=== PATIENT | male | born 1975 | race Asian ===

== ENCOUNTER → 2018-03-05 09:04 | Outpatient (CLI) | payer OTHER, SELFPAY ==
[2018-03-05 10:15] LABS: Hemoglobin A1C% w Est Avg Glu 6.4 % (4.0-6.0)
[2018-03-05 10:19] LABS: Alanine Aminotransferase 43 IU/L (21-72); Albumin 4.6 g/dL (3.5-5.0); Albumin Globulin Ratio 1.4 (1.0-2.8); Alkaline Phosphatase 62 U/L (38-126); Aspartate Aminotransferase 55 IU/L (17-59); BUN Creatinine Ratio 14.3 (6-22); Bilirubin Total 1.4 mg/dL (0.2-1.3); Blood Urea Nitrogen 10 mg/dL (9-20); Carbon Dioxide 29 mmol/L (22-32); Chloride 102 mmol/L (98-107); Cholesterol 177 mg/dL (140-199); Estimated Glomerular Filt Rate > 60.0 mL/min (>60); Globulin 3.3 g/dL (1.7-4.1); Glucose 113 mg/dL (70-100); HDL Cholesterol 55 mg/dL (40-60); HEMOLYSIS < 15 (0-50); LDL Cholesterol Calculated 100 mg/dL (<100); Potassium 4.3 mmol/L (3.4-5.1); Sodium 141 mmol/L (137-145); Total Protein 7.9 g/dL (6.3-8.2); Triglycerides 108 mg/dL (35-150)
[2018-03-05 12:09] LABS: Creatinine Urine Random 32.6 mg/dL
[2018-03-05 12:31] LABS: Microalbumi Creatinin Ratio Ur 18.4 ug/mg CR (<30); Microalbumin Urine Random < 0.6 mg/dL (0-1.6)
== END ==
PROVIDERS: PCP Family Medicine; Visit Provider Physician Assistant
DX: R73.01 Impaired fasting glucose (principal); E78.5 Hyperlipidemia, unspecified
CPT/HCPCS: 36415; 80053; 80061; 82043; 82570; 83036

== ENCOUNTER → 2018-08-15 10:46 | Outpatient (CLI) | payer OTHER, SELFPAY ==
[2018-08-15 12:16] LABS: Hemoglobin A1C% w Est Avg Glu 6.2 % (4.0-6.0)
[2018-08-15 13:11] LABS: Alanine Aminotransferase 39 IU/L (21-72); Albumin 4.8 g/dL (3.5-5.0); Albumin Globulin Ratio 1.6 (1.0-2.8); Alkaline Phosphatase 68 U/L (38-126); Aspartate Aminotransferase 27 IU/L (17-59); Bilirubin Total 0.5 mg/dL (0.2-1.3); Blood Urea Nitrogen 14 mg/dL (9-20); Calcium 9.8 mg/dL (8.4-10.2); Carbon Dioxide 29 mmol/L (22-32); Chloride 100 mmol/L (98-107); Estimated Glomerular Filt Rate > 60.0 mL/min (>60); Glucose 83 mg/dL (70-100); HEMOLYSIS < 15 (0-50); Potassium 4.8 mmol/L (3.4-5.1); Sodium 142 mmol/L (137-145); Total Protein 7.8 g/dL (6.3-8.2)
== END ==
PROVIDERS: PCP Registered Nurse; Visit Provider Registered Nurse
DX: E11.9 Type 2 diabetes mellitus without complications (principal)
CPT/HCPCS: 36415; 80053; 83036

== ENCOUNTER → 2019-08-12 15:11 | Outpatient (CLI) | payer OTHER, SELFPAY ==
[2019-08-12 15:55] LABS: Hemoglobin A1C% w Est Avg Glu 5.7 % (4.0-6.0)
[2019-08-12 16:14] LABS: BUN Creatinine Ratio 17.5 (6-22); Blood Urea Nitrogen 14 mg/dL (9-20); Calcium 10.2 mg/dL (8.4-10.2); Carbon Dioxide 31 mmol/L (22-32); Chloride 99 mmol/L (98-107); Estimated Glomerular Filt Rate > 60.0 mL/min (>60); Glucose 104 mg/dL (70-100); HEMOLYSIS < 15 (0-50); Sodium 139 mmol/L (137-145)
[2019-08-12 20:16] LABS: Creatinine Urine Random 18.2 mg/dL; Microalbumin Urine Random < 0.6 mg/dL (0-1.6)
== END ==
PROVIDERS: PCP Student in an Organized Health Care Education/Training Program; Visit Provider Student in an Organized Health Care Education/Training Program
DX: E11.9 Type 2 diabetes mellitus without complications (principal); I10 Essential (primary) hypertension
CPT/HCPCS: 36415; 80048; 82043; 82570; 83036

== ENCOUNTER → 2020-01-02 08:03 | Outpatient (CLI) | payer OTHER, SELFPAY ==
[2020-01-02 09:05] LABS: Hemoglobin A1C% w Est Avg Glu 6.1 % (4.0-6.0)
== END ==
PROVIDERS: PCP Student in an Organized Health Care Education/Training Program; Referring Provider Student in an Organized Health Care Education/Training Program; Visit Provider Student in an Organized Health Care Education/Training Program
DX: E11.9 Type 2 diabetes mellitus without complications (principal)
CPT/HCPCS: 36415; 83036

== ENCOUNTER → 2020-08-12 07:27 | Outpatient (CLI) | payer OTHER, SELFPAY ==
[2020-08-12 08:40] LABS: Hemoglobin A1C% w Est Avg Glu 6.2 % (4.0-6.0)
[2020-08-12 09:16] LABS: Microalbumin Urine Random < 0.6 mg/dL (0-1.6)
== END ==
PROVIDERS: PCP Student in an Organized Health Care Education/Training Program; Referring Provider Student in an Organized Health Care Education/Training Program; Visit Provider Student in an Organized Health Care Education/Training Program
DX: E11.9 Type 2 diabetes mellitus without complications (principal)
CPT/HCPCS: 36415; 82043; 82570; 83036

== ENCOUNTER → 2020-12-17 09:37 | Outpatient (CLI) | payer OTHER, SELFPAY ==
[2020-12-17 10:38] LABS: Blood Urea Nitrogen 12 mg/dL (9-20); Calcium 9.6 mg/dL (8.4-10.2); Carbon Dioxide 29 mmol/L (22-32); Chloride 102 mmol/L (98-107); Estimated Glomerular Filt Rate > 60.0 mL/min (>60); Glucose 108 mg/dL (70-100); HEMOLYSIS < 15 (0-50); Potassium 4.4 mmol/L (3.4-5.1); Sodium 138 mmol/L (137-145)
[2020-12-17 10:40] LABS: Hemoglobin A1C% w Est Avg Glu 6.2 % (4.0-6.0)
== END ==
PROVIDERS: PCP Student in an Organized Health Care Education/Training Program; Referring Provider Student in an Organized Health Care Education/Training Program; Visit Provider Student in an Organized Health Care Education/Training Program
DX: E11.9 Type 2 diabetes mellitus without complications (principal); I10 Essential (primary) hypertension
CPT/HCPCS: 36415; 80048; 83036

== ENCOUNTER → 2021-07-20 08:27 | Outpatient (CLI) | payer OTHER, SELFPAY ==
[2021-07-20 09:30] LABS: Hemoglobin A1C% w Est Avg Glu 6.2 % (4.0-6.0)
[2021-07-20 10:28] LABS: Creatinine Urine Random 118.4 mg/dL
[2021-07-20 10:33] LABS: Microalbumin Urine Random 0.6 mg/dL (0-1.6)
== END ==
PROVIDERS: PCP Student in an Organized Health Care Education/Training Program; Referring Provider Student in an Organized Health Care Education/Training Program; Visit Provider Student in an Organized Health Care Education/Training Program
DX: R73.03 Prediabetes (principal)
CPT/HCPCS: 36415; 82043; 82570; 83036

== ENCOUNTER → 2021-12-29 14:48 | Outpatient (CLI) | payer OTHER, SELFPAY ==
[2021-12-29 15:36] LABS: Hemoglobin A1C% w Est Avg Glu 6.5 % (4.0-6.0)
== END ==
PROVIDERS: PCP Student in an Organized Health Care Education/Training Program; Referring Provider Student in an Organized Health Care Education/Training Program; Visit Provider Student in an Organized Health Care Education/Training Program
DX: R73.03 Prediabetes (principal)
CPT/HCPCS: 36415; 83036

== ENCOUNTER → 2022-02-20 15:35 | Outpatient (CLI) | payer OTHER, SELFPAY ==
--- NOTE | 2022-02-20 | DI.MRI.S_ITS ---
PROCEDURE: MR BRAIN (IAC) WWO CON INDICATIONS: Sensorineural hearing loss, bilateral; Tinnitus TECHNIQUE: Noncontrast sagittal T1 spin echo, axial FLAIR, axial gradient echo, axial diffusion and ADC through the brain. Axial thin-slice 3D CISS, coronal TruFISP, axial T1 spin echo with fat saturation through the internal auditory canals. After the administration of contrast, thin slice axial and coronal T1 spin echo with fat saturation through the internal auditory canals, and axial T1 spin echo with fat saturation through the brain. COMPARISON: None. FINDINGS: Avidly-enhancing dumbbell-shaped in the right cerebellopontine angle expanding the internal auditory canal with extension laterally to the porous acoustic and extension medially into the cerebellopontine angle. This lesion measures approximately 2.5 x 1.5 cm maximum axial dimension and 1.4 cm craniocaudal. The mass is consistent with a vestibular schwannoma, although this is not entirely definitive. No other abnormal or unexpected intracranial enhancement. No restricted diffusion to indicate recent ischemia. The major intracranial vascular flow-related signal voids are maintained. No unexpected intracranial susceptibility. No brain parenchymal FLAIR signal abnormality. Midline structures are normal in configuration. No gross orbital abnormality. Paranasal sinuses and mastoid air cells are predominantly clear. IMPRESSION: Avidly-enhancing and dumbbell-shaped mass in the internal auditory canal extending into the cerebellopontine angle on the right, consistent with a vestibular schwannoma. Dictated by: Florencio Vicente M.D. on 02/20/2022 at 16:33 Approved by: Florencio Vicente M.D. on 02/20/2022 at 16:36
== END ==
PROVIDERS: PCP Student in an Organized Health Care Education/Training Program; Referring Provider Otolaryngology; Visit Provider Otolaryngology
DX: H90.3 Sensorineural hearing loss, bilateral (principal); H93.11 Tinnitus, right ear; H61.891 Other specified disorders of right external ear
CPT/HCPCS: 70553

== ENCOUNTER → 2022-06-18 16:30 | Outpatient (CLI) | payer OTHER, SELFPAY ==
[2022-06-18 17:50] LABS: Hemoglobin A1C% w Est Avg Glu 6.1 % (4.0-6.0)
== END ==
PROVIDERS: PCP Student in an Organized Health Care Education/Training Program; Referring Provider Student in an Organized Health Care Education/Training Program; Visit Provider Student in an Organized Health Care Education/Training Program
DX: R73.03 Prediabetes (principal)
CPT/HCPCS: 36415; 83036

== ENCOUNTER 2022-12-20 08:02 | Day surgery (SDC) | payer OTHER, SELFPAY ==
[2022-12-20] VITALS (7 sets, daily range): BP systolic 104–152; BP diastolic 71–88; PULSE 21–91; RESP 8–16; TEMP 36.1–36.4; O2SAT 97–100; BMI 24.3
[2022-12-20] MEDS: LACTATED RINGERS 1,000 ML 42 ML IV (08:19)
--- NOTE | 2022-12-20 09:40 | PM.HP.1 ---
History of Present Illness History of Present Illness Date Patient Seen: 12/20/22 Time Patient Seen: 09:41 Chief complaint: Colonoscopy Narrative: Mr. Jeffrey angeles presents today for his 1st screening colonoscopy. He is never had 1 before he has no family history of colon cancer in no concerning symptoms. He has had some surgery has in his right lower quadrant a incision with what on exam appears to be a seroma where some subcutaneous fat was removed in order to assist with a acoustic neuroma operation. This has been now several weeks past and he has no abdominal pain and is otherwise feeling well. He has no other questions. [facility] Medical History (Updated 12/20/22 @ 09:42 by Armida Zimmerman MD) Chronic back pain Hx of hyperlipidemia (~07/2014) Mumps (Unknown) Osteoarthritis of ankle and foot Right acoustic neuroma Tinnitus of both ears Surgical History (Updated 01/01/21 @ 15:15 by Castro Wray MD) No history of previous surgery (08/13/17) Family History (Updated 08/15/18 @ 09:26 by Yasmin Nunez) Mother Diabetes mellitus Social History household members: family Smoking Status: Former smoker second hand exposure: No alcohol intake: current substance use type: does not use Meds Home Medications and Allergies Home Medications Medication Instructions Recorded Confirmed Type omega-3 fatty acids 500 mg capsule 500 mg PO DAILY 03/04/18 12/20/22 History turmeric root extract 500 mg 500 mg PO DAILY 03/04/18 12/20/22 History capsule Allergies Allergy/AdvReac Type Severity Reaction Status Date / Time No Known Drug Allergies Allergy Verified 12/20/22 08:10 Exam Vital Signs (past 8 hours): - 12/20/22 08:15 Temperature 97 F L Pulse Rate 21 L Respiratory Rate 16 Blood Pressure 152/88 H Pulse Oximetry 100 Oxygen Delivery Method Room Air Oxygen Delivery Method Room Air Const General: cooperative, healthy appearing and comfortable Nutritional Appearance: average body habitus and well nourished HENMT Head: normal to inspection Eyes General: appearance normal, both eyes and all related structures Resp Effort & Inspection: normal respiratory effort and able to speak in complete sentences Cardio Pulses: radial pulses present GI Palpation: soft and No tender Skin Other: Right lower quadrant well healed surgical incision with a sort of fluid filled feeling mass underneath of it Assessment & Plan Assessment and plan (1) Encounter for screening colonoscopy: Status: Acute Assessment & Plan narrative: Presents today for screening colonoscopy I discussed the risks benefits and alternatives including but not limited to perforation of the colon and an incomplete exam he fully understands these risks and would like to proceed.
--- NOTE | 2022-12-20 10:27 | P.OP.COLON_ITS ---
Operative Date/Time/Diagnoses Date of procedure: 12/20/22 Time of procedure: 10:28 Pre-op diagnosis: Screening colonoscopy Post-op diagnosis: same Procedure & Clinicians Study performed: Screening colonoscopy Same procedure as scheduled: Yes Surgeon: Armida Zimmerman Procedure Notes Procedure in detail: Patient was taken to the endoscopy suite and placed in a left lateral decubitus position. A time-out was performed. Conscious sedation was induced and maintained with the help of an anesthesiology provider. A digital rectal exam was performed there were no masses or strictures the colonoscope was introduced into the anal canal and advanced through to the cecum. A photograph of the a ppendiceal orifice was obtained. The prep especially in the cecum and the right side of the colon was poor. Photographs were obtained that show several right- sided diverticula as well as the quality of the prep. I did make an effort to irrigate and examine the mucosa as best as possible but I believe that the exam was limited. As I withdrew the scope during the course of 15 minutes I irrigated as much as I could and the prep was much better on the left side of the colon no polyps were seen. The scope was retroflexed and the internal hemorrhoid piles were photographed. Patient tolerated the procedure well and went in good condition to the postoperative care unit Findings: divertiulosis (Right-sided) Specimen(s): none sent Complications: none Impression: I would recommend a 5 year follow-up because of the quality of the prep. 5-10 year follow-up would be appropriate otherwise. For preparation for your next colonoscopy I recommend either drinking whole lot more water or doing a 2 day prep. Post-procedure Recommendations: Colonoscopy in 5 years
== END 2022-12-20 11:09 | disposition home or self-care (01) ==
PROVIDERS: PCP Student in an Organized Health Care Education/Training Program; Referring Provider Surgery; Visit Provider Surgery
PROC: 0DJD8ZZ Inspection of Lower Intestinal Tract, Via Natural or Artificial Opening Endoscopic (ICD-10-PCS; CPT 45378; principal; 2022-12-20 09:15)
DX: Z12.11 Encounter for screening for malignant neoplasm of colon (principal); K57.30 Diverticulosis of large intestine without perforation or abscess without bleeding; K64.8 Other hemorrhoids
CPT/HCPCS: 45378; J2704

== ENCOUNTER → 2023-07-18 08:53 | Outpatient (CLI) | payer OTHER, SELFPAY ==
[2023-07-18 10:10] LABS: Alanine Aminotransferase 32 IU/L (<50); Albumin 4.6 g/dL (3.5-5.0); Albumin Globulin Ratio 1.4 (1.0-2.8); Alkaline Phosphatase 53 U/L (38-126); Aspartate Aminotransferase 34 IU/L (17-59); BUN Creatinine Ratio 17.9 (6-22); Bilirubin Total 0.9 mg/dL (0.2-1.3); Blood Urea Nitrogen 12 mg/dL (9-20); Calcium 9.3 mg/dL (8.4-10.2); Carbon Dioxide 28 mmol/L (22-32); Chloride 100 mmol/L (98-107); Cholesterol 200 mg/dL (140-199); Estimated Glomerular Filt Rate > 60 mL/min (>60); Globulin 3.4 g/dL (1.7-4.1); Glucose 131 mg/dL (70-100); HDL Cholesterol 51 mg/dL (40-60); HEMOLYSIS 23 (0-50); LDL Cholesterol Calculated 128 mg/dL (<100); Potassium 4.3 mmol/L (3.4-5.1); Sodium 138 mmol/L (137-145); Triglycerides 107 mg/dL (35-150)
[2023-07-18 10:18] LABS: Hemoglobin A1C% w Est Avg Glu 6.4 % (4.0-6.0)
[2023-07-18 12:09] LABS: Creatinine Urine Random 31.3 mg/dL
[2023-07-18 12:25] LABS: Microalbumin Urine Random < 0.6 mg/dL (0-1.6)
== END ==
PROVIDERS: PCP Family Medicine; Referring Provider Family Medicine; Visit Provider Family Medicine
DX: R73.03 Prediabetes (principal)
CPT/HCPCS: 80053; 80061; 82043; 82570; 83036

== ENCOUNTER → 2024-01-03 09:39 | Outpatient (CLI) | payer OTHER, SELFPAY ==
[2024-01-03 10:33] LABS: Hemoglobin A1C% w Est Avg Glu 6.2 % (4.0-6.0)
[2024-01-03 11:36] LABS: HIV 1 & 2 Ab/Ag 4th Gen Combo NEGATIVE (NEGATIVE); Hep C Virus Ab w/Reflex Quant NEGATIVE s/c (NEGATIVE)
== END ==
PROVIDERS: PCP Family Medicine; Referring Provider Family Medicine; Visit Provider Family Medicine
DX: E11.9 Type 2 diabetes mellitus without complications (principal); Z11.59 Encounter for screening for other viral diseases; Z11.4 Encounter for screening for human immunodeficiency virus [HIV]
CPT/HCPCS: 36415; 83036; 86803; 87389

== ENCOUNTER → 2024-06-26 09:28 | Outpatient (CLI) | payer OTHER, SELFPAY ==
[2024-06-26 10:32] LABS: Add Manual Diff / Slide Review NO; Basophils Absolute Auto 0 /uL (0-100); Basophils Percent Auto 1.1 % (0-2); Eosinophils Absolute Auto 100 /uL (0-450); Eosinophils Percent Auto 1.9 % (2-4); Hematocrit 41.1 % (41-53); Hemoglobin 14.1 g/dL (13.5-17.5); Lymphocytes Absolute Auto 1500 /uL (1100-4500); Lymphocytes Percent Auto 36.4 % (25-40); Mean Corpuscular HGB Conc 34.3 % (30-36); Mean Corpuscular Hemoglobin 31.3 PG (26-34); Mean Corpuscular Volume 91.3 fL (80-100); Monocytes Absolute Auto 300 /uL (0-900); Monocytes Percent Auto 8.1 % (3-14); Neutrophils Absolute Auto 2100 /uL (1500-7000); Neutrophils Percent Auto 52.5 % (50-75); Platelet Count 285 X10^3/uL (150-400); Red Cell Distribution Width 12.4 % (11.6-14.8)
[2024-06-26 11:05] LABS: Alanine Aminotransferase 27 IU/L (<50); Albumin 4.7 g/dL (3.5-5.0); Albumin Globulin Ratio 1.7 (1.0-2.8); Alkaline Phosphatase 52 U/L (38-126); Aspartate Aminotransferase 32 IU/L (17-59); BUN Creatinine Ratio 18.3 (6-22); Bilirubin Total 0.8 mg/dL (0.2-1.3); Blood Urea Nitrogen 11 mg/dL (9-20); Calcium 9.3 mg/dL (8.4-10.2); Carbon Dioxide 26 mmol/L (22-32); Chloride 103 mmol/L (98-107); Cholesterol 164 mg/dL (140-199); Estimated Glomerular Filt Rate > 60 mL/min (>60); Globulin 2.8 g/dL (1.7-4.1); Glucose 116 mg/dL (70-100); HDL Cholesterol 63 mg/dL (40-60); LDL Cholesterol Calculated 90 mg/dL (<100); Sodium 136 mmol/L (137-145); Total Protein 7.5 g/dL (6.3-8.2); Triglycerides 56 mg/dL (35-150)
[2024-06-26 11:07] LABS: HEMOLYSIS 53 (0-50)
[2024-06-26 15:58] LABS: Creatinine Urine Random 32.37 mg/dL
[2024-06-26 16:07] LABS: Microalbumin Urine Random < 0.6 mg/dL (0-1.6)
== END ==
LOC: LAB 09:34
PROVIDERS: PCP Family Medicine; Referring Provider Family Medicine; Visit Provider Family Medicine
DX: Z00.00 Encounter for general adult medical examination without abnormal findings (principal); E11.9 Type 2 diabetes mellitus without complications
CPT/HCPCS: 36415; 80053; 80061; 82043; 82570; 83036; 85025

== ENCOUNTER → 2025-01-05 09:13 | Outpatient (CLI) | payer OTHER, SELFPAY ==
[2025-01-05 10:38] LABS: Hematocrit 42.4 % (41-53); Hemoglobin 14.8 g/dL (13.5-17.5); Mean Corpuscular HGB Conc 34.9 % (30-36); Mean Corpuscular Hemoglobin 31.5 PG (26-34); Mean Corpuscular Volume 90.4 fL (80-100); Platelet Count 256 X10^3/uL (150-400); Red Blood Cell Count 4.69 X10^6/uL (4.5-5.9); Red Cell Distribution Width 12.2 % (11.6-14.8); White Blood Cell Count 3.8 X10^3/uL (4.5-11.0)
[2025-01-05 10:48] LABS: Hemoglobin A1C% w Est Avg Glu 5.6 % (4.0-6.0)
== END ==
PROVIDERS: PCP Family Medicine; Referring Provider Family Medicine; Visit Provider Family Medicine
DX: E11.9 Type 2 diabetes mellitus without complications (principal); R63.4 Abnormal weight loss
CPT/HCPCS: 36415; 83036; 85027

== ENCOUNTER → 2025-07-13 09:32 | Outpatient (CLI) | payer OTHER, SELFPAY ==
[2025-07-13 10:26] LABS: Hemoglobin A1C% w Est Avg Glu 6.0 % (4.0-6.0)
[2025-07-13 10:38] LABS: Alanine Aminotransferase 20 IU/L (<50); Albumin 4.8 g/dL (3.5-5.0); Albumin Globulin Ratio 1.5 (1.0-2.8); Alkaline Phosphatase 59 U/L (38-126); Blood Urea Nitrogen 11 mg/dL (9-20); Calcium 9.1 mg/dL (8.4-10.2); Carbon Dioxide 28 mmol/L (22-32); Chloride 103 mmol/L (98-107); Cholesterol 198 mg/dL (140-199); Estimated Glomerular Filt Rate > 60 mL/min (>60); Globulin 3.1 g/dL (1.7-4.1); Glucose 116 mg/dL (70-99); HDL Cholesterol 64 mg/dL (40-60); HEMOLYSIS < 15 (0-50); Potassium 4.4 mmol/L (3.4-5.1); Sodium 139 mmol/L (137-145); Total Protein 7.9 g/dL (6.3-8.2); Triglycerides 101 mg/dL (35-150)
== END ==
PROVIDERS: PCP Family Medicine; Referring Provider Family Medicine; Visit Provider Family Medicine
DX: E11.9 Type 2 diabetes mellitus without complications (principal); Z00.00 Encounter for general adult medical examination without abnormal findings
CPT/HCPCS: 36415; 80053; 80061; 82043; 82570; 83036